=== PATIENT | male | born 1985 | race African-American/Black ===

== ENCOUNTER 2022-01-24 07:21 | Emergency (ER) | payer OTHER, SELFPAY ==
[2022-01-24 07:26] VITALS: BP 172/104; PULSE 104; RESP 20; TEMP 37; O2SAT 99; BMI 30.7
--- NOTE | 2022-01-24 07:37 | ED.PSYCH ---
HPI - Psych General Chief Complaint: Psychiatric Symptoms Stated Complaint: Mental health issues Time Seen by Provider: 01/24/22 07:37 Source: patient Mode of arrival: Ambulatory Limitations: no limitations History of Present Illness HPI Narrative: This is a 36-year-old male with history of hypertension, dyslipidemia and alcohol abuse. Patient presents today for intrusive suicidal ideation, patient states he does not have any intent. He has had thoughts about a plan but does not share them. Patient states multiple times he does not wish to harm himself but expresses that he is reaching a point that he is not sure he can prevent himself from harming himself. Patient does have difficulty clearly articulating this, he describes having all of these feelings as a big ball in his chest that is sitting and that he is unable to tolerate any longer. He states he does not have firearms in the home. Patient has had thoughts of harming others denies intent he states it is only because of all the other thoughts that he has been having. Patient has had anxiety and been treated in the past with an oral medication. He describes depressive symptoms for a [place] [facility] and states that he drinks alcohol, he states that he typically drinks hard liquor sometimes up to a pint. He states that recently he has increased his alcohol intake quite a bit. Denies withdrawals but unclear if he is stopped at any point. Patient denies any shakiness or other issues. Patient does not admit to any PTSD or symptoms but does not really express that he does not like he has any symptoms. He does vape tobacco daily, denies any substance abuse or illicit. He states that he has been treated for hypertension dyslipidemia in the past but is not currently taking medication. Denies surgeries. Patient is in the [place]. He has had counseling in the past several years ago but is not actively receiving any treatment. He does feel that there is barriers to care in mental health in the and has been reluctant to pursue treatment because of this. He states he has a good friend who brought him today [facility] who is aware of the situation but he has not been sharing his thoughts or feelings with the people around him but states he does trust TK. After discussion about various options patient is seeking inpatient treatment today. Related Data Allergies Allergy/AdvReac Type Severity Reaction Status Date / Time No Known Drug Allergies Allergy Verified 01/24/22 07:26 Review of Systems Review of Systems ROS Unobtainable: All systems reviewed & are unremarkable except as noted in HPI and below Patient History Social History Smoking Status: Current every day smoker Smoking Status: Current every day smoker tobacco type: cigarettes, e-cigarettes and vaping alcohol intake frequency: 0-2 drinks per day Substance Use Type: does not use Exam Narrative Exam Narrative: GENERAL: Alert and oriented x three, well-nourished male in moderate distress. Patient is quite anxious during evaluation. HEENT: Head normocephalic, atraumatic, EOMI, pupils reactive, face symmetric, moist mucous membranes NECK: Supple, full range of motion CARDIOVASCULAR: Regular rate and rhythm without murmurs, rubs or gallops. RESPIRATORY: Breath sounds equal bilaterally, no wheezes rales or rhonchi. ABDOMEN: Soft, nontender. Normoactive bowel sounds all 4 quadrants. No guarding or rebound, rigidity, no mass : No CVA tenderness EXTREMITIES: Normal range of motion, no clubbing or edema. Neurovascularly intact NEUROLOGICAL: Cranial nerves II through XII grossly intact. Moving all extremities, no tremor. SKIN: Warm, dry, no petechiae, no rashes or lesions. PSYCH: Suicidal ideation with intrusive thoughts, no active intent. Homicidal thoughts but without intent. Anxiety. Depression. No hallucinations. Initial Vital Signs Initial Vital Signs: Vital Signs Temperature 98.6 F 01/24/22 07:26 Pulse Rate 104 H 01/24/22 07:26 Respiratory Rate 20 01/24/22 07:26 Blood Pressure 172/104 H 01/24/22 07:26 Pulse Oximetry 99 01/24/22 07:26 Oxygen Delivery Method 01/24/22 07:26 Course Orders Ordered: ED Orders 01/24/22 08:02 [place] to [facility] 01/24/22 08:15 Urinalysis and Microscopic Stat Urine Drug Screen, Rapid Stat 01/24/22 08:18 Acetaminophen Stat Complete Blood Count AUTO DIFF Stat Comprehensive Metabolic Panel Stat Ethanol (ETOH) Stat Free T4, Direct Thyroxine Stat Salicylate Stat Thyroid Stimulating Hormone Stat 01/24/22 11:01 Ethanol (ETOH) Stat 01/24/22 12:10 Ethanol (ETOH) Stat Discontinued Medications Lorazepam (Lorazepam 0.5 Mg Tablet) 1 mg PO NOW ONE Stop: 01/24/22 08:03 Last Admin: 01/24/22 08:25 Dose: 1 mg Documented By: KB Consultations Consultation #1: Graham Stringer accepts CUSTOMER CONTACT REPRESENTATIVE [phone] [facility] #. [facility]. Time: 14:05 Vital Signs Vital signs: Vital Signs - 8 hr 01/24/22 12:02 01/24/22 14:22 Temperature 98 F Pulse Rate 110 H 98 H Respiratory Rate 18 18 Blood Pressure 141/102 H 160/100 H Pulse Oximetry 96 100 Oxygen Delivery Method Room Air Room Air MDM - Psych Lab Data Result diagrams: 01/24/22 08:18 01/24/22 08:18 Labs: Lab Results 01/24/22 01/24/22 01/24/22 Range/Units 06:33 08:15 08:15 WBC (4.5-11.0) X10^3/uL RBC (4.5-5.9) X10^6/uL Hgb (13.5-17.5) g/dL Hct (41-53) % MCV (80-100) fL MCH (26-34) PG MCHC (30-36) % RDW (11.6-14.8) % Plt Count (150-400) X10^3/uL Neut % (Auto) (50-75) % Lymph % (Auto) (25-40) % Cotton % (Auto) (3-14) % Eos % (Auto) (2-4) % Baso % (Auto) (0-2) % Neut # (Auto) (8822-1525) /uL Lymph # (Auto) (4929-7334) /uL Cotton # (Auto) (0-900) /uL Eos # (Auto) (0-450) /uL Baso # (Auto) (0-100) /uL Sodium (137-145) mmol/L Potassium (3.4-5.1) mmol/L Chloride (98-107) mmol/L Carbon Dioxide (22-32) mmol/L BUN (9-20) mg/dL Creatinine (0.66-1.25) mg/dL Estimated GFR (>60) mL/min BUN/Creatinine Ratio (6-22) Glucose (70-100) mg/dL Calcium (8.4-10.2) mg/dL Total Bilirubin (0.2-1.3) mg/dL AST (17-59) IU/L ALT (<50) IU/L Alkaline Phosphatase (38-126) U/L Total Protein (6.3-8.2) g/dL Albumin (3.5-5.0) g/dL Globulin (1.7-4.1) g/dL Albumin/Globulin Ratio (1.0-2.8) TSH (0.47-4.68) uIU/mL Free T4 (0.78-2.19) ng/dL Urine Color Yellow Urine Appearance Clear Urine pH 5.0 (4.5-8.0) Ur Specific [place] >=1.030 H (1.000-1.035) Urine Protein 1+ H (Negative) Urine Glucose (UA) Negative (Negative) g/dL Urine Ketones 2+ H (NEGATIVE) Urine Occult Blood 1+ H (Negative) Urine Nitrate Negative (Negative) Urine Bilirubin Negative (NEGATIVE) Urine Urobilinogen 0.2 (0.2) E.U./dL Ur Leukocyte Esterase Negative (NEGATIVE) Urine RBC 0-1/hpf (0-5/HPF) Urine WBC 0-1/hpf (0-5/HPF) Ur Squamous Epith Cells None seen (0-5/HPF) Urine Bacteria Occasional (0-1) (None) Ur Culture Indicated? Cult not indicated Salicylates (<20) mg/dL U Opiates 300ng/mL cut Negative (Negative) Ur Oxycodone Screen Negative (Negative) Urine Methadone Screen Negative (Negative) Acetaminophen (10-30) ug/mL Ur Barbiturates Screen Negative (Negative) U Tricyclic Antidepress Negative (Negative) Ur Phencyclidine Scrn Negative (Negative) Ur Amphetamines Screen Negative (Negative) U Methamphetamines Scrn Negative (Negative) Ur MDMA Scrn (Ecstasy) Negative (Negative) U Benzodiazepines Scrn Negative (Negative) Urine Cocaine Screen Negative (Negative) U Marijuana (THC) Screen Negative (Negative) Ethyl Alcohol ( - 10) mg/dL SARS-CoV-2 (PCR) Negative (Negative) 01/24/22 01/24/22 01/24/22 Range/Units 08:18 08:18 08:18 WBC 6.1 (4.5-11.0) X10^3/uL RBC 4.42 L (4.5-5.9) X10^6/uL Hgb 14.9 (13.5-17.5) g/dL Hct 42.5 (41-53) % MCV 96.3 (80-100) fL MCH 33.6 (26-34) PG MCHC 34.9 (30-36) % RDW 14.3 (11.6-14.8) % Plt Count 236 (150-400) X10^3/uL Neut % (Auto) 62.8 (50-75) % Lymph % (Auto) 27.7 (25-40) % Cotton % (Auto) 8.4 (3-14) % Eos % (Auto) 0.5 L (2-4) % Baso % (Auto) 0.6 (0-2) % Neut # (Auto) 3800 (1831-8662) /uL Lymph # (Auto) 1700 (0184-1836) /uL Cotton # (Auto) 500 (0-900) /uL Eos # (Auto) 0 (0-450) /uL Baso # (Auto) 0 (0-100) /uL Sodium 143 (137-145) mmol/L Potassium 4.2 (3.4-5.1) mmol/L Chloride 104 (98-107) mmol/L Carbon Dioxide 22 (22-32) mmol/L BUN 19 (9-20) mg/dL Creatinine 0.97 (0.66-1.25) mg/dL Estimated GFR > 60 (>60) mL/min BUN/Creatinine Ratio 19.6 (6-22) Glucose 104 H (70-100) mg/dL Calcium 9.0 (8.4-10.2) mg/dL Total Bilirubin 0.8 (0.2-1.3) mg/dL AST 258 H (17-59) IU/L ALT 193 H (<50) IU/L Alkaline Phosphatase 113 (38-126) U/L Total Protein 9.3 H (6.3-8.2) g/dL Albumin 5.0 (3.5-5.0) g/dL Globulin 4.3 H (1.7-4.1) g/dL Albumin/Globulin Ratio 1.2 (1.0-2.8) TSH 0.907 (0.47-4.68) uIU/mL Free T4 0.87 (0.78-2.19) ng/dL Urine Color Urine Appearance Urine pH (4.5-8.0) Ur Specific [place] (1.000-1.035) Urine Protein (Negative) Urine Glucose (UA) (Negative) g/dL Urine Ketones (NEGATIVE) Urine Occult Blood (Negative) Urine Nitrate (Negative) Urine Bilirubin (NEGATIVE) Urine Urobilinogen (0.2) E.U./dL Ur Leukocyte Esterase (NEGATIVE) Urine RBC (0-5/HPF) Urine WBC (0-5/HPF) Ur Squamous Epith Cells (0-5/HPF) Urine Bacteria (None) Ur Culture Indicated? Salicylates < 1.0 (<20) mg/dL U Opiates 300ng/mL cut (Negative) Ur Oxycodone Screen (Negative) Urine Methadone Screen (Negative) Acetaminophen < 10 (10-30) ug/mL Ur Barbiturates Screen (Negative) U Tricyclic Antidepress (Negative) Ur Phencyclidine Scrn (Negative) Ur Amphetamines Screen (Negative) U Methamphetamines Scrn (Negative) Ur MDMA Scrn (Ecstasy) (Negative) U Benzodiazepines Scrn (Negative) Urine Cocaine Screen (Negative) U Marijuana (THC) Screen (Negative) Ethyl Alcohol 155 H ( - 10) mg/dL SARS-CoV-2 (PCR) (Negative) 01/24/22 01/24/22 Range/Units 11:01 12:10 WBC (4.5-11.0) X10^3/uL RBC (4.5-5.9) X10^6/uL Hgb (13.5-17.5) g/dL Hct (41-53) % MCV (80-100) fL MCH (26-34) PG MCHC (30-36) % RDW (11.6-14.8) % Plt Count (150-400) X10^3/uL Neut % (Auto) (50-75) % Lymph % (Auto) (25-40) % Cotton % (Auto) (3-14) % Eos % (Auto) (2-4) % Baso % (Auto) (0-2) % Neut # (Auto) (9376-3641) /uL Lymph # (Auto) (5251-2934) /uL Cotton # (Auto) (0-900) /uL Eos # (Auto) (0-450) /uL Baso # (Auto) (0-100) /uL Sodium (137-145) mmol/L Potassium (3.4-5.1) mmol/L Chloride (98-107) mmol/L Carbon Dioxide (22-32) mmol/L BUN (9-20) mg/dL Creatinine (0.66-1.25) mg/dL Estimated GFR (>60) mL/min BUN/Creatinine Ratio (6-22) Glucose (70-100) mg/dL Calcium (8.4-10.2) mg/dL Total Bilirubin (0.2-1.3) mg/dL AST (17-59) IU/L ALT (<50) IU/L Alkaline Phosphatase (38-126) U/L Total Protein (6.3-8.2) g/dL Albumin (3.5-5.0) g/dL Globulin (1.7-4.1) g/dL Albumin/Globulin Ratio (1.0-2.8) TSH (0.47-4.68) uIU/mL Free T4 (0.78-2.19) ng/dL Urine Color Urine Appearance Urine pH (4.5-8.0) Ur Specific [place] (1.000-1.035) Urine Protein (Negative) Urine Glucose (UA) (Negative) g/dL Urine Ketones (NEGATIVE) Urine Occult Blood (Negative) Urine Nitrate (Negative) Urine Bilirubin (NEGATIVE) Urine Urobilinogen (0.2) E.U./dL Ur Leukocyte Esterase (NEGATIVE) Urine RBC (0-5/HPF) Urine WBC (0-5/HPF) Ur Squamous Epith Cells (0-5/HPF) Urine Bacteria (None) Ur Culture Indicated? Salicylates (<20) mg/dL U Opiates 300ng/mL cut (Negative) Ur Oxycodone Screen (Negative) Urine Methadone Screen (Negative) Acetaminophen (10-30) ug/mL Ur Barbiturates Screen (Negative) U Tricyclic Antidepress (Negative) Ur Phencyclidine Scrn (Negative) Ur Amphetamines Screen (Negative) U Methamphetamines Scrn (Negative) Ur MDMA Scrn (Ecstasy) (Negative) U Benzodiazepines Scrn (Negative) Urine Cocaine Screen (Negative) U Marijuana (THC) Screen (Negative) Ethyl Alcohol 104 H 79 H ( - 10) mg/dL SARS-CoV-2 (PCR) (Negative) MDM Narrative Medical decision making narrative: This is a 36-year-old male with history of hypertension/dyslipidemia and alcohol use. Patient has had longstanding likely anxiety and depression issues he admits to large amounts of alcohol although he denies withdrawal symptoms. Unclear if he is had any periods where he stopped. Patient has sought help in the past and been treated for anxiety he is had increasing we difficult thoughts of suicide and these have become more intense and intrusive, he states he does not have intent he does not wish to harm himself but is clearly quite anxious and my impression is that he does not trust himself not to harm himself or potentially others. He does not admit to having any firearms at home. He self presented today with a good friend from the who corroborates that patient does use quite a bit of alcohol, has recently put in request for jail which was denied and is likely exacerbated his issues and has received treatment for his alcohol abuse in the past. Patient's is currently living [facility] the [facility] I did speak with her on the phone as well she is quite concerned and agrees as well as his friend at bedside that patient needs inpatient care. I agree with this assessment, patient is currently voluntary and seeking placement and I think this is very appropriate. Patient was quite sleepy after dose of lorazepam. He arouses easily but it does seem to be making him feel much comfortable. Patient states it is not very helpful for the thoughts in his head. Patient is medically cleared. Patient is accepted at [facility] by ANDREINA Stringer. Discharge Plan Departure Patient Disposition: Xfer Psychiatric Hosp Clinical Impression: Depression with suicidal ideation, Alcohol use Referrals: Provider,Edenilson BUSH [Primary Care Provider] -
--- NOTE | 2022-01-24 08:10 | PC.NURSE ---
talking with provider
--- NOTE | 2022-01-24 08:15 | PC.NURSE ---
lab drawing blood from patient. Patient laying down in bed
[2022-01-24 08:25] LABS: Add Manual Diff / Slide Review NO; Basophils Absolute Auto 0 /uL (0-100); Basophils Percent Auto 0.6 % (0-2); Eosinophils Absolute Auto 0 /uL (0-450); Eosinophils Percent Auto 0.5 % (2-4); Hematocrit 42.5 % (41-53); Hemoglobin 14.9 g/dL (13.5-17.5); Lymphocytes Absolute Auto 1700 /uL (1100-4500); Lymphocytes Percent Auto 27.7 % (25-40); Mean Corpuscular HGB Conc 34.9 % (30-36); Mean Corpuscular Hemoglobin 33.6 PG (26-34); Mean Corpuscular Volume 96.3 fL (80-100); Monocytes Absolute Auto 500 /uL (0-900); Monocytes Percent Auto 8.4 % (3-14); Neutrophils Absolute Auto 3800 /uL (1500-7000); Neutrophils Percent Auto 62.8 % (50-75); Platelet Count 236 X10^3/uL (150-400); Red Blood Cell Count 4.42 X10^6/uL (4.5-5.9); Red Cell Distribution Width 14.3 % (11.6-14.8); White Blood Cell Count 6.1 X10^3/uL (4.5-11.0)
[2022-01-24] MEDS: LORazepam 0.5 MG TABLET 1 MG PO (08:25)
--- NOTE | 2022-01-24 08:35 | PC.NURSE ---
Arlen is on [facility] [phone]
[2022-01-24 08:41] LABS: Acetaminophen < 10 ug/mL (10-30); Alanine Aminotransferase 193 IU/L (<50); Albumin Globulin Ratio 1.2 (1.0-2.8); Alkaline Phosphatase 113 U/L (38-126); Aspartate Aminotransferase 258 IU/L (17-59); BUN Creatinine Ratio 19.6 (6-22); Bilirubin Total 0.8 mg/dL (0.2-1.3); Blood Urea Nitrogen 19 mg/dL (9-20); Carbon Dioxide 22 mmol/L (22-32); Chloride 104 mmol/L (98-107); Estimated Glomerular Filt Rate > 60 mL/min (>60); Ethanol (ETOH) 155 mg/dL; Globulin 4.3 g/dL (1.7-4.1); Glucose 104 mg/dL (70-100); HEMOLYSIS < 15 (0-50); Potassium 4.2 mmol/L (3.4-5.1); Salicylate < 1.0 mg/dL (<20); Sodium 143 mmol/L (137-145); Total Protein 9.3 g/dL (6.3-8.2)
[2022-01-24 08:46] LABS: Appearance Urine UA CLEAR; Bilirubin Urine UA NEGATIVE (NEGATIVE); Color Urine UA YELLOW; Glucose Urine UA NEGATIVE (Negative); Ketones Urine UA 2+ (NEGATIVE); Leukocyte Esterase Urine UA NEGATIVE (NEGATIVE); Nitrite Urine UA NEGATIVE (Negative); Occult Blood Urine UA 1+ (Negative); Protein Urine UA 1+ (Negative); Specific Gravity Urine UA >=1.030 (1.000-1.035); Urobilinogen Urine UA 0.2 E.U./dL (0.2)
[2022-01-24 08:48] LABS: UR Morphine/Opiate cutoff 300 Negative (Negative); Ur Creatinine Normal (Normal); Ur Specific Gravity Normal (Normal); Urine Amphetamines Negative (Negative); Urine Barbiturates Negative (Negative); Urine Benzodiazepines Negative (Negative); Urine Cocaine Negative (Negative); Urine MDMA Negative (Negative); Urine Methadone Negative (Negative); Urine Methamphetamines Negative (Negative); Urine Oxycodone Negative (Negative); Urine Phencyclidine Negative (Negative); Urine Tetrahydrocannabinol Negative (Negative); Urine Tricyclic Antidepressant Negative (Negative); Urine pH Normal (Normal)
[2022-01-24 08:59] LABS: COVID19 -Nasal RAPID Negative (Negative)
[2022-01-24 09:04] LABS: Bacteria Urine Occasional (0-1); Culture Indicated Urine Cult Not Indicated; RBC Urine 0-1/HPF (0-5/HPF); Squamous Epithelial Cell Urine None Seen (0-5/HPF); WBC Urine 0-1/HPF (0-5/HPF)
--- NOTE | 2022-01-24 09:57 | CM.SWNOTE ---
SCRUM PROJECT MANAGER Assessment SCRUM PROJECT MANAGER - Financial Aid Manager Assessment SCRUM PROJECT MANAGER - Financial Aid Manager Assessment Time Spent with Patient Start date 01/24/22 Visit Start Time 08:50 End date 01/24/22 Visit End Time 09:05 Total time Care Management spent on 15 minutes patient visit-in minutes Mental Health Screening Include Onset, Duration, Intensity Presenting Problem Patient presents to the ED due to concern for spiraling mental health and self medicating with ETOH. Patient endorses increase in daily ETOH use in the last few days. Patient endorses increase in SI, feeling overwhelmed and unable to manage. Precipitating Event(s) Patient endorses he is currently going through a break up and states that everything feels like it is going on at once. Patient Strengths Patient is seeking help, patient identified supports Current Behavioral Health Provider(s) No current provider Include Facility, Provider, Ph. # Psych. Hx Mental Health and Chemical Patient denies formal MH dx. Dependency Patient has hx of depression and SI. Patient endorses ETOH use. Patient states yesterday he drank a bottle of coniac, the day prior he had half a handle of vodka and the day prior to that he had several beers. Patient presents to ED with BAL of 155. Patient endorses he has been drinking to cope with his mental health and to cope with his inability to work through his emotions. Family Hx of Behavioral Abuse None reported Psychiatric Hospitalizations (date(s)/ Patient endorses hx of location) inpatient rehab for alcohol use in [facility]. 2017 Psychosocial information & Support Patient is 36 y/o male who Systems resides in [place]. Patient endorses friend as local support, patient endorses family and friends on the [facility] that can be reached by phone. School/Work Active duty [employer] Legal Concerns Legal Matters - Outstanding Issues None reported Mental Status Orientation (Person/Place/Time) A/Ox4 Stated Mood overwhelmed Affect (Congruent with Mood?) depressed, flat, congruent with mood, stable Thought Content - Specify/Describe Patient denies visual and Obsessions, Delusions, Hallucinations auditory hallucinations Thought Processes (Opwpfzn-Wfzyysjb-Vffh coherent Jlgjulyr-Swdxdkkc-Gtinzaiuqe- Rxuwlimkgehvle-Uaqnvoa-Hfcugoffrhtu- Thought Blocking) Speech (Efozvg-Ldny-Onklvvl-Rapid-Soft- slow/soft Loud-Pressured) Motor (Ogepch-Aiozbapfx-Dxmu-Other) normal Insight (Itfa-Hkwj-Wtvj/Limited) fair Judgement (Wyol-Qbzj-Mthv/Limited) fair Impulse Control (Adequate-Impaired) adequate Memory (Ppjotrcfa-Uappbt-Xzwrfk, intact Impaired-Intact) Concentration (Intact-Impaired) intact Attention (Intact-Impaired) intact Behavior (Appropriate-Inappropriate) appropriate Additional Comment Patient presents as calm, communicative and cooperative. Risk Assessment Suicidal Ideation (Plan) Yes Homicidal Ideation (Plan) No Comment Patient denies HI. Patient endorses current SI, patient states that he tells himself not to go through with plans to kill self. Patient denies plans or means to kill self but states he is spiraling and seeking help. Patient endorses concern that he will continue to spiral and lose control. Intervention Intervention SCRUM PROJECT MANAGER enters room to meet with patient. Patient endorses SI and his struggles over the last few days, patient states he has been spiraling and states that things came to a head last night. Patient endorses that he has been trying to cope but everything is happening at once. Patient endorses he has been drinking more in the last few days. Patient denies current MH provider and denies prescribed medication. Patient denies hx of withdrawal symptoms. Patient endorses his concern to manage at home and patient states he is seeking help for his MH. SCRUM PROJECT MANAGER discusses inpatient hospitalization and patient endorses agreement and understanding. It is the opinion of this SCRUM PROJECT MANAGER that patient is appropriate for and will benefit from voluntary inpatient hospitalization for crisis stabilization, medication management and safety. Patient endorses concern for coping with ETOH and concern that he is unable to manage at this point in time. SCRUM PROJECT MANAGER reviews the above with ED provider Dr. Osorio who indicates agreement and understanding. SCRUM PROJECT MANAGER calls [facility] and it is reported that they can review patient but in order to accept him, his BAL needs to be within 100. Plan: SCRUM PROJECT MANAGER to seek voluntary bed for patient when medically clear. Pita Whaley, DIRECTOR OF SOCIAL SERVICES
[2022-01-24 10:06] LABS: Free T4, Direct Thyroxine 0.87 ng/dL (0.78-2.19)
[2022-01-24 10:20] LABS: Thyroid Stimulating Hormone 0.907 uIU/mL (0.47-4.68)
[2022-01-24 11:24] LABS: Ethanol (ETOH) 104 mg/dL
[2022-01-24 12:02] VITALS: BP 141/102; PULSE 110; RESP 18; O2SAT 96
--- NOTE | 2022-01-24 14:21 | CM.SWNOTE ---
SCHOOL SOCIAL WORKER Note SCHOOL SOCIAL WORKER coordinates phone call with [facility] provider with ED provider Dr. Osorio. It is reported that patient is accepted to [facility] for voluntary bed. Accepting provider is CHAIM Patel, intake is [facility] Nurse to Nurse (Ph. # [phone]). ED team coordinates [facility] transportation for transport. SCHOOL SOCIAL WORKER reviews the above with patient and patient's friend. Plan: patient to transfer to [facility] for voluntary inpatient hospitalization bed this afternoon. CHERYL Mtz
[2022-01-24 14:22] VITALS: BP 160/100; PULSE 98; RESP 18; TEMP 36.6; O2SAT 100
[2022-01-24 15:02] LABS: Ethanol (ETOH) 79 mg/dL
--- NOTE | 2022-01-24 15:29 | PC.NURSE ---
*Accepted @ [facility] (Ph. # [phone]) Accepting provider Meghana Min, [facility] Nurse to nurse: Ph. # [phone] report given to Mike
== END 2022-01-24 15:15 ==
PROVIDERS: Emergency Provider Emergency Medicine
DX: F32.A Depression, unspecified (principal); R45.851 Suicidal ideations; F10.129 Alcohol abuse with intoxication, unspecified; Y90.5 Blood alcohol level of 100-119 mg/100 ml; Z20.822 Contact with and (suspected) exposure to COVID-19
CPT/HCPCS: 36415; 80053; 80305; 80320; 80329; 81001; 84439; 84443; 85025; 87635; 99284; C9803; G0480